=== PATIENT | female | born 1995 | race African-American/Black ===

== ENCOUNTER 2017-07-07 11:53 | Emergency (ER) | payer SELFPAY ==
[2017-07-07 13:18] LABS: Urine Blood 1+ (NEG); Urine Glucose NEGATIVE (NEG); Urine Protein 2+ (NEG); Urine Specific Gravity 1.015 (1.005-1.030)
[2017-07-07 13:18] LABS: Urine Bacteria <20 /HPF (<20); Urine Culture Reflex Order NOT NEEDED
[2017-07-07 13:19] LABS: Urine Mucus 3+ /HPF (NONE SEEN)
[2017-07-07] MEDS ORDERED: METOCLOPRAMIDE 10 MG/2mL INJ ONE (13:32)
[2017-07-07] MEDS ORDERED: NA CHLORIDE 0.9% 1,000 ML ONE (13:33)
[2017-07-07] MEDS ORDERED: DIPHENHYDRAMINE 50 MG/ML VIAL ONE (13:33)
[2017-07-07 13:37] LABS: Absolute Lymphocytes (CBC) 2.4 K/uL (0.7-4.9); Absolute Monocytes 0.9 K/uL (0.1-1.3); Absolute Neutrophil 10.3 K/uL (1.8-8.0); Basophils % 0.5 % (0-1.3); Hematocrit 45.9 % (36.0-45.0); Lymphocytes % 17.6 % (15.3-44.8); MPV 8.2 fL (7.6-11.3); Monocytes % 6.4 % (3.3-12.3)
[2017-07-07 13:46] LABS: Bicarbonate 27 mEq/L (21-31); Glucose Level 91 mg/dL (65-120); Lipase 19 U/L (22-51); Potassium 3.4 mEq/L (3.6-5.0); Sodium Level 135 mEq/L (135-145)
[2017-07-07 13:52] LABS: ALT/SGPT 24 IU/L (10-60); AST/SGOT 23 IU/L (10-42); Albumin 4.6 g/dL (3.2-5.5); Alkaline Phosphatase 77 IU/L (42-121); Amylase Level 38 U/L (28-100); BUN Blood Urea Nitrogen 11 mg/dL (6-20); Bilirubin Direct 0.2 mg/dL (0-0.2); Bilirubin Total 0.7 mg/dL (0.3-1.2); Protein, Total 8.6 g/dL (6.0-8.3)
--- NOTE | 2017-07-07 14:51 | RAD REPORT ---
EXAM DESCRIPTION: US - Abdomen Exam Limited - 07/07/2017 1:31 pm CLINICAL HISTORY: Abdominal pain COMPARISON: None. FINDINGS: No gallstones, sludge or other abnormalities within the gallbladder lumen. There is no wal l thickening or pericholecystic fluid. No common duct stone or biliary tree dilatation identified. IMPRESSION: Normal gallbladder and biliary tree ultrasound.
[2017-07-07] MEDS ORDERED: LIDOCAINE 1% MPF 2 ML AMPULE ONE (15:02)
--- NOTE | 2017-07-07 15:40 | RAD REPORT ---
EXAM DESCRIPTION: CT - Abdomen Pelvis W Contrast - 07/07/2017 3:26 pm CLINICAL HISTORY: Abdominal pain, epigastric pain COMPARISON: None. TECHNIQUE: Biphasic, helical CT imaging of the abdomen and pelvis was performed following 100 ml non -ionic IV contrast. Oral contrast was given. All CT scans are performed using dose optimization technique as appropriate and may include automated exposure control or mA/KV adjustment according to patient size. FINDINGS: No suspicious findings in the lung bases. The liver, spleen, and pancreas show no suspicious findings. Gallbladder and biliary tree are also wi thout suspicious finding. Symmetric renal function is seen with no hydronephrosis or suspicious renal mass. There is prominent wall thickening and edema of the gastric antrum and distal body of the stomach. No pneumatosis seen. No gastric perforation or clearly defined gastric ulcer. Fluid is seen in the duod enal bulb but no clear duodenal bulb wall thickening. Remainder the duodenum is unremarkable as well. A few small fluid-filled distal small bowel loops are present. No acute colon finding. No free air, free fluid or pneumatosis. No hernia, mass or bulky lymphadenopathy. The urinary bladde r is without significant finding. No adrenal abnormality. No suspicious uterine finding. Left ovary i s normal. Right ovary contains a 2.2 cm cyst. Note tube dilatation. No suspicious bony findings. IMPRESSION: Prominent gastric antritis pattern with prominent circumferential thickening and edema o f the gastric antrum and distal body of the stomach. No perforation, focal ulceration or pneumatosis.
--- NOTE | 2017-07-07 17:15 | ER ---
Nurse's Notes [facility] Name: Malena Amaya Age: 22 yrs Sex: Female : 1995 Arrival Date: 07/07/2017 Time: 11:56 Bed 20 Private MD: Diagnosis: Gastritis, unspecified Presentation: 07/07 12:01 Presenting complaint: Patient states: N/V and sharp epigastric pain x 3 days. hb Tolerating liquids. Denies fever/diarrhea. Transition of care: patient was not received from another setting of care. Onset of symptoms is unknown. Risk Assessment: Do you want to hurt yourself or someone else? Patient reports no desire to harm self or others. Initial Sepsis Screen: Does the patient meet any 2 criteria? No. Patient's initial sepsis screen is negative. Does the patient have a suspected source of infection? No. Patient's initial sepsis screen is negative. Care prior to arrival: None. 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 - Social history:: Smoking status: Patient/guardian denies using tobacco. - Ebola Screening: : No symptoms or risks identified at this time. Screenin:36 Abuse screen: Denies threats or abuse. Denies injuries from another. Nutritional aj screening: No deficits noted. Tuberculosis screening: No symptoms or risk factors identified. Fall Risk None identified. Assessment: 13:36 General: Appears in no apparent distress. comfortable, Behavior is calm, cooperative, aj appropriate for age. Pain: Complains of pain in right upper quadrant. Neuro: Level of Consciousness is awake, alert, obeys commands, Oriented to person, place, time, situation, Appropriate for age. Respiratory: Airway is patent Respiratory effort is even, unlabored, Respiratory pattern is regular, symmetrical. GI: Abdomen is flat, Bowel sounds present X 4 quads. Abd is soft and non tender X 4 quads. Derm: Skin is intact, is healthy with good turgor, Skin is pink, warm \T\ dry. normal. 15:34 Reassessment: Patient appears in no apparent distress at this time. Patient and/or mb3 family updated on plan of care and expected duration. Pain level reassessed. Patient is alert, oriented x 3, equal unlabored respirations, skin warm/dry/pink. Patient denies pain at this time. Patient states feeling better. Patient states symptoms have improved. Gave drink to pt. Vital Signs: 12:03 BP 142 / 96; Pulse 91; Resp 16; Temp 97.8; Pulse Ox 99% ; Weight 58.97 kg; Height 4 ft. hb 10 in. (147.32 cm); Pain 7/10; 14:22 BP 123 / 67; Pulse 89; Resp 19; Pulse Ox 99% on R/A; aj 16:10 BP 109 / 71; Pulse 78; Resp 16; Pulse Ox 96% on R/A; mb3 17:51 BP 120 / 72; Pulse 73; Resp 16; Pulse Ox 100% on R/A; mb3 12:03 Body Mass Index 27.17 (58.97 kg, 147.32 cm) hb ED Course: 11:56 Patient arrived in ED. sb2 12:03 Triage completed. hb 12:03 Arm band placed on right wrist. hb 12:32 Servando Grover PA is PHCP. jmm 12:32 Jose Stallworth MD is Attending Physician. jmm 12:35 Patient placed in an exam room, on a stretcher, Pt ambulatory to the bathroom to obtain sv a urine sample. 12:57 Urine Culture Sent. 5 12:57 Urine Microscopic Only Sent. 5 13:06 Ultrasound completed. Patient tolerated well. sg3 13:11 Romina Tirado, RN is Primary Nurse. aj 13:36 Patient has correct armband on for positive identification. aj 13:36 No provider procedures requiring assistance completed. Inserted saline lock: 20 gauge aj in right antecubital area, using aseptic technique. Blood collected. 15:26 CT Abd/Pelvis - W/Contrast In Process Unspecified. EDMS 15:31 Naveen Mi, TREVER is Primary Nurse. mb3 17:14 Yudelka Cobian MD is Referral Physician. jmm 17:54 IV discontinued, intact, bleeding controlled, No redness/swelling at site. Pressure mb3 dressing applied. Administered Medications: 13:38 Drug: NS 0.9% 1000 ml Route: IV; Rate: 125 ml/hr; Site: right antecubital; aj 17:56 Follow up: Response: No adverse reaction; IV Status: Completed infusion; IV Intake: mb3 1000ml 13:38 Drug: Reglan 10 mg Route: IVP; Site: right antecubital; aj 17:57 Follow up: Response: No adverse reaction mb3 13:39 Drug: diphenhydrAMINE 12.5 mg Route: IVP; Site: right antecubital; aj 17:57 Follow up: Response: No adverse reaction mb3 14:43 Drug: Zofran 4 mg Route: IVP; Site: right antecubital; aj 17:51 Follow up: Response: No adverse reaction mb3 14:49 Drug: morphine 4 mg Route: IVP; Site: right antecubital; aj 17:50 Follow up: Response: No adverse reaction mb3 Intake: 17:56 IV: 1000ml; Total: 1000ml. mb3 Outcome: 17:15 Discharge ordered by MD. ramires 17:54 Discharged to home ambulatory. mb3 17:54 Condition: stable 17:54 Discharge instructions given to patient, Instructed on discharge instructions, follow up and referral plans. medication usage, Demonstrated understanding of instructions, follow-up care, medications. 17:55 Patient left the ED. mb3 Signatures: Dispatcher [employer] Corina Feliciano RN RN sv Myers, Amanda, RN RN aj Mickail, Joel, PA PA jmm Baxter, Heather, RN RN hb Martinez, [facility] Fartun Slade sg3 Missy Suárez 2 Naveen iM RN RN mb3 Corrections: (The following items were deleted from the chart) 13:34 13:32 In radiology for Abdomen Limited+[id number].RAD.[id number]. EDMS sg3
--- NOTE | 2017-07-07 17:16 | EDPHYS ---
Physician Documentation [facility] Name: Malena Amaya Age: 22 yrs Sex: Female : 1995 Arrival Date: 07/07/2017 Time: 11:56 Bed 20 Private MD: ED Physician Jose Stallworth HPI: 07/07 13:01 This 22 yrs old Black Female presents to ER via Ambulatory with complaints of Abdominal jmm Pain, Vomiting. 13:01 The patient presents with abdominal pain. Onset: The symptoms/episode began/occurred jmm gradually, 2 day(s) ago. The symptoms radiate to right back. Associated signs and symptoms: Pertinent positives: nausea and vomiting, diarrhea. The symptoms are described as achy, burning. 22 year old female with hs of asthma and no hx of surgical hx presents to the ED with epigatric abdominal pain worsening over the past 2 days ago with multiple episodes of vomiting and 3 episodes of loose stools. Denies fever, denies infectious exposure, denies recent travel, denies recent antiobiotic use.. 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 - Social history:: Smoking status: Patient/guardian denies using tobacco. - Ebola Screening: : No symptoms or risks identified at this time. ROS: 13:01 Constitutional: Negative for fever, chills, and weight loss. jmm 13:01 Cardiovascular: Negative for chest pain, palpitations, and edema, Respiratory: Negative jmm for shortness of breath, cough, wheezing, and pleuritic chest pain. 13:01 Skin: Negative for injury, rash, and discoloration, Neuro: Negative for headache, weakness, numbness, tingling, and seizure. 13:01 Abdomen/GI: Positive for abdominal pain, nausea and vomiting, diarrhea. 13:01 Back: Positive for pain at rest. 13:01 All other systems are negative. Exam: 13:01 Constitutional: This is a well developed, well nourished patient who is awake, alert, jmm and in no acute distress. Cardiovascular: Regular rate and rhythm. No gallops, murmurs, or rubs. Full/Equal distal pulses. Respiratory: Lungs have equal breath sounds bilaterally, clear to auscultation. No rales, rhonchi or wheezes noted. No increased work of breathing, no retractions or nasal flaring. 13:01 Skin: Warm, dry with normal turgor. Normal color with no rashes, no lesions, and no evidence of cellulitis. MS/ Extremity: Pulses equal, no cyanosis. Neurovascular intact. Full, normal range of motion. 13:01 Abdomen/GI: Inspection: abdomen appears normal, Palpation: soft, mild abdominal tenderness, in the right upper quadrant. 13:01 Back: Exam negative for 13:01 Skin: Appearance: 13:01 Neuro: Orientation: is normal, Mentation: is normal, Memory: is normal, Cerebellar function: Motor: is normal, Gait: is steady. 13:01 Eyes: Extraocular movements: intact throughout. [facility] Vital Signs: 12:03 BP 142 / 96; Pulse 91; Resp 16; Temp 97.8; Pulse Ox 99% ; Weight 58.97 kg; Height 4 ft. hb 10 in. (147.32 cm); Pain 7/10; 14:22 BP 123 / 67; Pulse 89; Resp 19; Pulse Ox 99% on R/A; aj 16:10 BP 109 / 71; Pulse 78; Resp 16; Pulse Ox 96% on R/A; mb3 17:51 BP 120 / 72; Pulse 73; Resp 16; Pulse Ox 100% on R/A; mb3 12:03 Body Mass Index 27.17 (58.97 kg, 147.32 cm) hb MDM: 12:58 Patient medically screened. [facility] 21:29 Differential diagnosis: cholecystitis, gastritis, pancreatitis, Peptic Ulcer Disease, [facility] Perf. Duodenal Ulcer, Peritonitis, Pyelonephritis, Ureterolithiasis. Data reviewed: vital signs, nurses notes, lab test result(s), radiologic studies, CT scan, ultrasound. ED course: After administration of IV fluids, antiemetics, and analgesics, the patient states she is feeling much better. Patient tolerates PO in the ED. Patient is advised of the need to follow up with GI for further evaluation. Patient is given return precautions. Understands and agrees with the plan of care. . 07/07 12:17 Order name: Urine Culture formerly [facility] 07/07 12:17 Order name: Urine Microscopic Only; Complete Time: 14:16 snw 07/07 13:05 Order name: Amylase, Serum ss 07/07 13:05 Order name: Basic Metabolic Panel ss 07/07 13:05 Order name: CBC with Diff ss 07/07 12:17 Order name: US Abdomen Limited; Complete Time: 14:52 snw 07/07 12:17 Order name: Urine Test (obtain specimen); Complete Time: 12:55 snw 07/07 13:05 Order name: Creatinine for Radiology; Complete Time: 14:16 ss 07/07 13:05 Order name: Hepatic Function; Complete Time: 14:16 ss 07/07 13:05 Order name: Lipase; Complete Time: 14:16 ss 07/07 13:06 Order name: Amylase Level; Complete Time: 14:16 EDMS 07/07 13:06 Order name: Basic Metabolic Panel; Complete Time: 14:16 EDMS 07/07 13:06 Order name: CBC with Automated Diff; Complete Time: 14:16 EDMS 07/07 13:06 Order name: Urine Dipstick--Ancillary (enter results); Complete Time: 14:16 em1 07/07 13:06 Order name: Urine --Ancillary (enter results); Complete Time: 14:16 em1 07/07 14:53 Order name: CT Abd/Pelvis - W/Contrast; Complete Time: 16:01 [facility] 07/07 12:17 Order name: Urine Dipstick-Ancillary (obtain specimen); Complete Time: 12:55 snw 07/07 13:00 Order name: IV Saline Lock; Complete Time: 13:39 [facility] 07/07 13:00 Order name: Labs collected and sent; Complete Time: 13:38 [facility] 07/07 13:00 Order name: Urine Dipstick-Ancillary (obtain specimen); Complete Time: 14:02 [facility] Administered Medications: 13:38 Drug: NS 0.9% 1000 ml Route: IV; Rate: 125 ml/hr; Site: right antecubital; aj 17:56 Follow up: Response: No adverse reaction; IV Status: Completed infusion; IV Intake: mb3 1000ml 13:38 Drug: Reglan 10 mg Route: IVP; Site: right antecubital; aj 17:57 Follow up: Response: No adverse reaction mb3 13:39 Drug: diphenhydrAMINE 12.5 mg Route: IVP; Site: right antecubital; aj 17:57 Follow up: Response: No adverse reaction mb3 14:43 Drug: Zofran 4 mg Route: IVP; Site: right antecubital; aj 17:51 Follow up: Response: No adverse reaction mb3 14:49 Drug: morphine 4 mg Route: IVP; Site: right antecubital; aj 17:50 Follow up: Response: No adverse reaction mb3 Disposition: 07/08 12:42 Co-signature as Attending Physician, Jose Stallworth MD. Disposition: 07/07/17 17:15 Discharged to Home. Impression: Gastritis, unspecified. - Condition is Stable. - Discharge Instructions: Gastritis, Adult. - Prescriptions for Carafate 1 gram Oral Tablet - take 1 tablet by ORAL route 4 times per day take on an empty stomach, beginning on waking and last dose at bedtime; 100 tablet. Nexium 20 mg Oral Capsule - take 1 capsule by ORAL route once daily; 20 capsule. Zofran 4 mg Oral Tablet - take 1 tablet by ORAL route every 12 hours As needed; 20 tablet. - Medication Reconciliation Form, Thank You Letter, Antibiotic Education, Prescription Opioid Use form. - Follow up: Yudelka Cobian MD; When: 1 - 2 days; Reason: Continuance of care. - Problem is new. - Symptoms have improved. - Notes: Please follow up with GI for further evaluation. Please return to the ED if you develop fever, if you are unable to tolerate fluids by mouth, if you develop increased pain, or if you have any other concerning symptoms. Signatures: Dispatcher [employer] EDMS Romina Tirado RN RN aj Therrien, Shelly, AVANI BLADE ALIGNER-Servando Torres PA PA jmm Baxter, Heather, RN RN hb Starr, Gregory, MD MD Naveen Mi RN RN mb3 Corrections: (The following items were deleted from the chart) 07/07 13:03 13:01 22 year old female with no PMH hx of surgical hx presents to the ED with keyla epigatric abdominal pain worsening over the past 2 days ago with multiple episodes of vomiting and 3 episodes of loose stools. Denies fever, denies infectious exposure, denies recent travel, denies recent antiobiotic use.. [facility] 17:55 17:15 07/07/2017 17:15 Discharged to Home. Impression: Gastritis, unspecified. mb3 Condition is Stable. Forms are Medication Reconciliation Form, Thank You Letter, Antibiotic Education, Prescription Opioid Use. Follow up: Yudelka Cobian; When: 1 - 2 days; Reason: Continuance of care. Problem is new. Symptoms have improved. keyla
== END 2017-07-07 17:55 | disposition home or self-care (01) ==
LOC: ER 11:53
DX: K29.70 Gastritis, unspecified, without bleeding (principal); Z88.0 Allergy status to penicillin
CPT/HCPCS: 36415; 74177; 76705; 80048; 80076; 81003; 81015; 81025; 82150; 83690; 85025; 87086; 87088; 96361; 96374; 96375; 99284; J2001; J2765; J7030; Q9967

== ENCOUNTER 2019-12-15 13:18 | Emergency (ER) | payer SELFPAY ==
--- OUTSIDE RECORDS SUMMARY | 2019-12-15 13:20 | XMS REPORT | Continuity of Care Document ---
:1995 Author Organization [facility] t Address [address] [place] [address] Care Team Providers Name Role Phone Jojo Dickens MD Attending Clinician Ignacio CANTU F Attending Clinician Bentley CAMPBELL Attending Clinician Bentley CAMPBELL Admitting Clinician Problems This patient has no known problems. Allergies, Adverse Reactions, Alerts This patient has no known allergies or adverse reactions. Medications This patient has no known medications. Procedures This patient has no known procedures. Encounters Start End Encounter Admission Attending Care Care Encounter Source Date/Time Date/Time Type Type Clinicians Facility Department ID 2019-09-01 2019-09-01 Case Maninder [facility] [id number] 00:00:00 00:00:00 Management Holli Zuniga [id number] [place] [id number] [facility] [id number] [address] 2019-08-24 2019-08-25 [facility] Anna Pierre [facility] [id number] 14:49:49 17:40:00 Encounter Vinicius Hagan [id number] [place] [id number] [place] [id number] Results This patient has no known results.
--- NOTE | 2019-12-15 15:54 | ER ---
Nurse's Notes [facility] Name: Malena Amaya Age: 24 yrs Sex: Female : 1995 Arrival Date: 12/15/2019 Time: 13:20 Bed 28 Private MD: Diagnosis: Acute upper respiratory infection, unspecified Presentation: 12/14 14:09 Chief complaint: Patient states: Aches and chills, chest tightness, cough and ca1 congestion, headache, no taste and smell, diarrhea since Sunday. Denies fever. Coronavirus screen: Client denies travel out of the [place] in the last 14 days. chills, congestion, cough unrelated to allergies, diarrhea, headache, muscle pain, loss of taste or smell, Client presents with at least one sign or symptom that may indicate coronavirus-19. The client reports previous COVID testing was negative. Date of collection: August 2019. Ebola Screen: Patient negative for fever greater than or equal to 101.5 degrees Fahrenheit, and additional compatible Ebola Virus Disease symptoms Patient denies exposure to infectious person. Patient denies travel to an Ebola-affected area in the 21 days before illness onset. No symptoms or risks identified at this time. Initial Sepsis Screen: Does the patient meet any 2 criteria? No. Patient's initial sepsis screen is negative. Does the patient have a suspected source of infection? No. Patient's initial sepsis screen is negative. Risk Assessment: Do you want to hurt yourself or someone else? Patient reports no desire to harm self or others. Onset of symptoms was December 15, 2019. 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 - Social history:: Smoking status: Reported history of juuling and/or vaping. Screenin:38 Abuse screen: Denies threats or abuse. Nutritional screening: No deficits noted. jd3 Tuberculosis screening: No symptoms or risk factors identified. Fall Risk Ambulatory Aid- None/Bed Rest/Nurse Assist (0 pts). Gait- Normal/Bed Rest/Wheelchair (0 pts) Mental Status- Oriented to own ability (0 pts). Total Clark Fall Scale indicates No Risk (0-24 pts). Assessment: 15:37 General: Appears in no apparent distress. uncomfortable, Behavior is calm, cooperative, jd3 appropriate for age. Pain: Complains of pain in chest Quality of pain is described as pressure. Neuro: Level of Consciousness is awake, alert, obeys commands, Oriented to person, place, time, situation. Cardiovascular: Capillary refill < 3 seconds Patient's skin is warm and dry. Respiratory: Reports shortness of breath cough that is persistent Airway is patent Respiratory effort is even, unlabored, Respiratory pattern is regular, symmetrical. GI: No signs and/or symptoms were reported involving the gastrointestinal system. : No signs and/or symptoms were reported regarding the genitourinary system. EENT: No signs and/or symptoms were reported regarding the EENT system. Derm: Skin is intact, Skin is dry, Skin is normal, Skin temperature is warm. Musculoskeletal: Circulation, motion, and sensation intact. Range of motion: intact in all extremities. 16:03 Reassessment: Patient appears in no apparent distress at this time. Patient and/or jd3 family updated on plan of care and expected duration. Pain level reassessed. Patient is alert, oriented x 3, equal unlabored respirations, skin warm/dry/pink. Vital Signs: 14:09 BP 133 / 86; Pulse 78; Resp 16 S; Temp 97.8(TE); Pulse Ox 99% on R/A; Weight 54.43 kg ca1 (R); Height 4 ft. 10 in. (147.32 cm); Pain 0/10; 14:09 Body Mass Index 25.08 (54.43 kg, 147.32 cm) ca1 ED Course: 13:20 Patient arrived in ED. ag5 14:11 Triage completed. ca1 14:11 Arm band placed on right wrist. ca1 14:26 Armand Antonio PA is PHCP. cp 14:26 Caesar Brandon MD is Attending Physician. cp 14:35 Valeriy Mcduffie RN is Primary Nurse. jd3 15:04 Strep swab sent to lab. Pt swabbed for COVID-19. jp3 15:07 Strep Sent. jp3 15:07 COVID-19 Sent. jp3 15:39 Patient has correct armband on for positive identification. Bed in low position. Call jd3 light in reach. Side rails up X 1. Pulse ox on. NIBP on. 16:03 No provider procedures requiring assistance completed. Patient did not have IV access jd3 during this emergency room visit. Administered Medications: No medications were administered Outcome: 15:53 Discharge ordered by MD. cp 16:03 Discharged to home ambulatory. jd3 16:03 Condition: stable 16:03 Discharge instructions given to patient, Instructed on discharge instructions, follow up and referral plans. medication usage, Demonstrated understanding of instructions, follow-up care, medications, Prescriptions given X 2. 16:03 Patient left the ED. jd3 Addendum: 12/18/2019 20:11 Addendum: COVID-19 Result: Positive result giiven to ED physician to notify pt. b b Physician: Armand Pedroza MD Physician was able to contact pt and pt was notified of positive COVID-19 swab result. Physician answered pt questions. Signatures: Kelly Villanueva, RN RN Armand Hodgson, Valeriy Corbett cp, RN RN jd3 Paxton Cobian jp3 Raisa Harrison RN RN ca1 Nimco Mohan 5
--- NOTE | 2019-12-15 15:54 | EDPHYS ---
Physician Documentation [facility] Name: Malena Amaya Age: 24 yrs Sex: Female : 1995 Arrival Date: 12/15/2019 Time: 13:20 Bed 28 Private MD: ED Physician Caesar Brandon HPI: 12/14 14:50 This 24 yrs old Black Female presents to ER via Ambulatory with complaints of R/O COVID.cp 14:50 The patient or guardian reports cough, that is intermittent. cp 14:50 Onset: The symptoms/episode began/occurred 3 day(s) ago. cp 14:50 Associated signs and symptoms: Pertinent positives: sore throat, congestion, loss of cp taste and smell, headache, Pertinent negatives: diarrhea, vomiting. Severity of symptoms: in the emergency department the symptoms are unchanged despite home interventions. 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 - Social history:: Smoking status: Reported history of juuling and/or vaping. ROS: 14:55 Constitutional: Negative for chills, fever, poor PO intake. cp 14:55 Eyes: Negative for injury, pain, redness, and discharge. cp 14:55 ENT: Positive for sore throat, Negative for drainage from ear(s), ear pain, difficulty swallowing, difficulty handling secretions. 14:55 Respiratory: Positive for cough. 14:55 Skin: Negative for rash. 14:55 Neuro: Negative for headache, weakness. 14:55 All other systems are negative. Exam: 15:00 Constitutional: The patient appears in no acute distress, alert, awake, non-toxic, well cp developed, well nourished. 15:00 Head/Face: Normocephalic, atraumatic. cp 15:00 Eyes: Periorbital structures: appear normal, Conjunctiva: normal, no exudate, no injection, Sclera: no appreciated abnormality, Lids and lashes: appear normal, bilaterally. 15:00 ENT: External ear(s): are unremarkable, Ear canal(s): are normal, clear, TM's: dullness, bilaterally, Nose: is normal, Mouth: Lips: moist, Oral mucosa: moist, Posterior pharynx: Airway: no evidence of obstruction, patent, Tonsils: with erythema, no enlargement, no exudate, Uvula: midline, erythema, that is mild, exudate, is not appreciated. 15:00 Neck: ROM/movement: is normal, is supple, no meningismus, no nuchal rigidity, Lymph nodes: no appreciated lymphadenopathy. 15:00 Chest/axilla: Inspection: normal, Palpation: is normal, no crepitus, no tenderness. 15:00 Cardiovascular: Rate: normal, Rhythm: regular. 15:00 Respiratory: the patient does not display signs of respiratory distress, Respirations: normal, no use of accessory muscles, no retractions, labored breathing, is not present, Breath sounds: decreased breath sounds, are not appreciated, stridor, is not appreciated, + upper airway congestion. wheezing: is not appreciated. 15:00 Abdomen/GI: Exam negative for discomfort, distension, guarding, Inspection: abdomen appears normal. 15:00 Skin: no rash present. Vital Signs: 14:09 BP 133 / 86; Pulse 78; Resp 16 S; Temp 97.8(TE); Pulse Ox 99% on R/A; Weight 54.43 kg ca1 (R); Height 4 ft. 10 in. (147.32 cm); Pain 0/10; 14:09 Body Mass Index 25.08 (54.43 kg, 147.32 cm) ca1 MDM: 14:26 Patient medically screened. cp 15:00 Differential diagnosis: bronchitis, flu, URI, strep throat, COVID-19. cp 15:52 Data reviewed: vital signs, nurses notes, lab test result(s), and as a result, I will cp discharge patient. 15:52 Counseling: I had a detailed discussion with the patient and/or guardian regarding: the cp historical points, exam findings, and any diagnostic results supporting the discharge/admit diagnosis, lab results, to return to the emergency department if symptoms worsen or persist or if there are any questions or concerns that arise at home. ED course: VSS. Will discharge to home to quarantine while awaiting results of COVID-19 testing. Patient appears non-toxic and no signs of respiratory distress. 12/14 14:44 Order name: Strep cp 12/14 14:44 Order name: COVID-19 cp 12/14 14:45 Order name: Group A Streptococcus Rapid Sc EDOH 12/14 15:52 Order name: Throat Culture EDOH Administered Medications: No medications were administered Disposition: 12/15 06:51 Co-signature as Attending Physician, Caesar Brandon MD I agree with the assessment and kdr plan of care. Disposition: 12/15/19 15:53 Discharged to Home. Impression: Acute upper respiratory infection, unspecified. - Condition is Stable. - Discharge Instructions: Viral Respiratory Infection, COVID-19. - Prescriptions for Tessalon Perles 100 mg Oral Capsule - take 1 capsule by ORAL route every 8 hours As needed; 15 capsule. Albuterol Sulfate 90 mcg/actuation - inhale 1-2 puff by INHALATION route every 4-6 hours; 1 Inhaler. - Medication Reconciliation Form, Thank You Letter, Antibiotic Education, Prescription Opioid Use form. - Follow up: Private Physician; When: 2 - 3 days; Reason: Worsening of condition. - Problem is new. - Symptoms have improved. 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 Impression: Acute upper respiratory jd3 infection, unspecified. Condition is Stable. Forms are Medication Reconciliation Form, Thank You Letter, Antibiotic Education, Prescription Opioid Use. Follow up: Private Physician; When: 2 - 3 days; Reason: Worsening of condition. Problem is new. Symptoms have improved. cp
[2019-12-15 17:33] VITALS: BP 133/86; TEMP 97.8; O2SAT 99
== END 2019-12-15 16:03 | disposition home or self-care (01) ==
LOC: ER 13:18
DX: U07.1 COVID-19 (principal); J06.9 Acute upper respiratory infection, unspecified; Z88.0 Allergy status to penicillin; Z87.891 Personal history of nicotine dependence
CPT/HCPCS: 87070; 87081; 99283; U0002